=== PATIENT | female | born 1980 | race Caucasian/White ===

== ENCOUNTER 2018-12-16 21:19 | Emergency (ER) | payer SELFPAY ==
[~2018-12-16 21:19] MED LIST: Iopamidol 370 76% 100 ML VIAL ONE
[2018-12-16] MEDS ORDERED: Pantoprazole 40 MG VIAL ONE (22:09)
[2018-12-16] MEDS ORDERED: Sodium Chloride 0.9% 1,000 ML ONE (22:09)
[2018-12-16 22:15] LABS: Bilirubin Negative (Negative); Blood, Urine Negative (Negative); Clarity Clear (Clear); Glucose, Urine (Dipstick) Negative (Negative); Leukocyte Moderate (Negative); Nitrite Negative (Negative); Protein, Urine (Dipstick) Negative (Neg-Trace)
[2018-12-16 22:17] LABS: Pregnancy Test - Urine (BHCG) Negative (Negative); Pregu Control Bar Appear? YES (CONTROL BAR)
[2018-12-16 22:18] LABS: Pregu Control Background? CLEAR/WHITE (CLR/WHITE)
[2018-12-16 22:24] LABS: Band 3 % (5-11); Eosinophils 8 % (0-10); Hemoglobin 12.9 g/dL (12.0-16.0); Lymphocytes 57 % (21-51); MDiff Complete? YES; Macrocytosis SLIGHT = 6-15 cells (100X) (0-5/hpf); Mean Corpuscular HGB CONC 32.5 g/dL (32.0-36.0); Mean Corpuscular Hemoglobin 35.7 pg (27.0-31.0); Mean Platelet Volume 9.8 fL (7.4-10.4); Monocytes 2 % (0-10); Neutrophil 30 % (42-75); Platelet Count 215 thou/uL (130-400); Platelet Morphology Comment Appears Adequate; RBC Distribution Width 11.6 % (11.5-14.5); Red Blood Cell (RBC) Count 3.61 mill/uL (4.20-5.40); White Blood Cell (WBC) Count 13.9 thou/uL (4.8-10.8)
[2018-12-16 22:26] LABS: RBC/HPF None Seen HPF (0-3); Squamous Epithelial 0-3 HPF (0-3)
[2018-12-16 22:27] LABS: Bacteria/HPF Rare-Few HPF (None Seen)
[2018-12-16 22:29] LABS: ALT (SGPT) 165 U/L (8-55); AST (SGOT) 171 U/L (5-34); Acetaminophen Less than 6.0 mcg/mL (10.0-30.0); Albumin 2.9 g/dL (3.5-5.0); Alcohol 178 mg/dL (Less than 10); Alkaline Phosphatase 147 U/L (40-150); Anion Gap 12 mmol/L (10-20); BUN (Urea Nitrogen) 10 mg/dL (7.0-18.7); Bilirubin, Total 0.6 mg/dL (0.2-1.2); Calc. Creatinine Clearance 0 mL/min (70-130); Calcium 8.6 mg/dL (7.8-10.44); Carbon Dioxide 25 mmol/L (22-29); Chloride 106 mmol/L (98-107); Estimated GFR-MDRD 76; Globulin 4.2 g/dL (2.4-3.5); Glucose 88 mg/dL (70-105); Lipase 49 U/L (8-78); Potassium 3.8 mmol/L (3.5-5.1); Protein, Total 7.1 g/dL (6.0-8.3); Salicylate Less than 8.0 mg/dL (15.0-30.0); Sodium 139 mmol/L (136-145)
[2018-12-16 23:09] LABS: Amphetamine Not Detected (NotDetected); Barbiturates Screen Not Detected (NotDetected); Benzodiazepine Screen Detected (NotDetected); Cocaine Metabolite Screen Not Detected (NotDetected); Medtox Control Line Valid? VALID (VALID); Methadone Not Detected (NotDetected); Methamphetamine Not Detected (NotDetected); Opiate Screen Not Detected (NotDetected); Oxycodone Screen Not Detected (NotDetected); Phencyclidine (PCP) Not Detected (NotDetected); THC/Cannabinoid Screen Detected (NotDetected); Tricyclic Screen Not Detected (NotDetected)
--- NOTE | 2018-12-16 23:50 | CT ---
CT ABDOMEN AND PELVIS WITH IV CONTRAST 12/16/2018 CLINICAL INFORMATION: Abdominal pain. Patient feels as if she has a hernia. COMPARISON: None. Technique: Multiple contiguous axial CT images are obtained through the abdomen and pelvis with IV contrast. Cor onal reformatted images are provided. FINDINGS: Lower Chest: Lung bases are clear aside from minimal atelectasis in the right middle lobe and lingula . Vessels: Abdominal aorta is normal in caliber without evidence of an aortic dissection. Abdomen: Portal vein:Patent. Portal vein is mildly dilated measuring 1.7 cm in diameter. Gallbladder: Within normal limits for CT imaging. Liver: within normal limits. Spleen: Not visualized and likely surgically absent. Pancreas: within normal limits. Adrenals: within normal limits. Kidneys: within normal limits. Bowel: Multiple fluid-filled loops of small bowel are seen, there are no dilated loops of small bowel appreciated. Appendix: The appendix is visualized and normal in caliber. Peritoneum: No ascites or free air; no fluid collection. Mesentery and Retroperitoneum: No enlarged mesenteric or retroperitoneal lymph nodes. Abdominal Wall: Multiple ventral abdominal wall hernias are seen. The most superiorly located ventral abdominal wall hernia contains loops of the transverse colon without obstruction. This defect measures approximately 4.6 cm in transverse dimensions. Just inferior to this region is a fat-contain ing umbilical hernia which is in a periumbilical location. There is an additional infraumbilical ventral abdominal wall hernia also present which contains a loop of small bowel. This hernia defect m easures approximately 2.6 cm. Again there is no evidence of a bowel obstruction. Pelvis: Reproductive Organs: No pelvic masses. Pelvis within normal limits. Bladder: within normal limits. Bones: within normal limits. IMPRESSION: 1. At least 3 ventral abdominal wall hernias present. More superiorly located ventral abdominal wall hernia does contain a loop of colon with the more inferiorly located infraumbilical ventral abdominal wall hernia containing a loop of small bowel. There is no evidence of a bowel obstruction. 2. Evidence of splenectomy. Portal vein is mildly dilated measuring 1.7 cm.
[2018-12-17 21:01] LABS: Chlam.trachomatis by PCR,Urine Not Detected (NotDetected)
== END 2018-12-17 00:05 | disposition home or self-care (01) ==
LOC: NAV ERS 21:19
DX: K29.20 Alcoholic gastritis without bleeding (principal); K70.10 Alcoholic hepatitis without ascites; K43.2 Incisional hernia without obstruction or gangrene; K21.9 Gastro-esophageal reflux disease without esophagitis; F41.9 Anxiety disorder, unspecified; F31.9 Bipolar disorder, unspecified; F20.9 Schizophrenia, unspecified; F17.210 Nicotine dependence, cigarettes, uncomplicated; B37.9 Candidiasis, unspecified
CPT/HCPCS: 74177; 80053; 80306; 80307; 81003; 81015; 81025; 83690; 85025; 87081; 87430; 87491; 87591; 96361; 96374; C9113; J7050; Q9967